=== PATIENT | male | born 1985 | race Caucasian/White ===

== ENCOUNTER 2016-05-08 00:31 | Emergency (ER) | payer SELFPAY ==
[~2016-05-08] VITALS: Ht 182.9 cm; Wt 77.3 kg
[~2016-05-08 00:31] MED LIST: Lorazepam; ONDA4TAB48 PO; Tylenol PO; XVIS2550 PO; [UNRECOGNIZED DRUG - CODE] PO
[2016-05-08 01:06] VITALS: BP 155/105; PULSE 94; RESP 16; O2SAT 96
--- NOTE | 2016-05-08 01:08 | ED.REPORT ---
HPI-Psychiatric Illness Date of Service May 08, 2016 ED Provider: Robert Harris MD Patient is an intoxicated 31 year old male with a history of alcoholism, anxiety , depression with suicidal ideations, and prior psychiatric admissions who presents to the ED [place] [facility] [place] [facility] [place] complaining of increased depression and suicidal ideations tonight. The patient's mother called 911 this evening due to concern for the patient's safety. Patient states that he has been pushing all of his concerns and stressors onto his parents, specifically onto his mother. Patient reports that he is a burned out and that he is experiencing a lot of stress at work. He admitted tonight that he wanted to commit suicide by shooting himself with his gun. He stated that "it was either me or her". The patient has a gun at home, which [facility] confiscated. Patient makes frequent nonsensical statements about his mental status and admits that he is "extremely drunk". Patient states that he was seen by his PCP this week due to increasing anxiety. He was given Clonidine and Lorazepam, which he has "burned through". Patient is also on Propranolol for "extreme heartbeat". Patient admits to drinking a 12pack of beer daily. Patient denies any illicit drug abuse. Nursing Notes Stated Complaint: MENTAL HEALTH EVAL Chief Complaint: Psychiatric Complaint Nursing Notes Reviewed: Yes Allergies: Coded Allergies: diphenhydramine (Verified Allergy, Intermediate, Extrapyramidal Symptoms, 02/20/10) ED VISIT SECONDARY TO ALLERGIC REACTION 02-20-10 Scheduled ([Tylenol]) 500 MG PO QID Take 1 every 6 hours if needed for pain ([Lorazepam]) 1 mg see instructions Lorazepam taper: Take 2 mg every 6 hours for 2 days Then 2 mg every 8 hours for 2 days Then 1 mg every 8 hours for 2 days Then 0.5 mg every 12 hours for 2 day Then stop. Hydroxyzine Faviola-Expunged Drug, Do Not Renew! (Vistaril-Expunged Drug, Do Not Renew!) 25 Mg Tab 25 MG PO Every 6 hours Take 1 every 6 hours if needed for anxiety and/or itching Ondansetron (Zofran) 4 Mg Tab.rapdis 4 MG PO BID Take 1 every 12 hours if needed for nausea Propranolol-Expunged Drug, Do Not Renew! (Propranolol [place]-Expunged Drug, Do Not Renew!) 60 Mg Capcr 120 MG PO AM General Time Seen by MD: 01:07 Chief Complaint Depressed, Suicidal ideation Hx Obtained From: Patient Unable to Obtain Hx: Intoxicated (limited by) Arrived By: Police Onset Occurred: Just prior to arrival Symptom Duration: Since onset Progression Since Onset: Gradually worsening Severity: Current: No pain currently Severity: Maximum: No pain Recent Healthcare: No recent doctor visit, No recent hospitalization Similar Sx Previous: Yes Risk-Psychiatric Illness Suicide Risk Stratification Suicide Risk Factors - Adult: : Access to firearms: Alcohol use: Prior psych admission RF Statements: Risk factors reviewed Past Medical History Past Medical History alcoholism depression and anxiety, with previous psychiatric admissions for suicidal ideations hemorrhoids "extreme heartbeat" gastric ulcer Reports: GERD Past Surgical History none reported Smoking History Current Every Day Smoker Social History Alcohol Use: >5 per day Drug Use: THC Other Social History: Good social support, Local resident Ambulatory Status Independent Review of Systems Unable to Obtain ROS Intoxicated (limited by intoxication) Psychiatric: Reports: Depression, Stress, Suicidal ideation Physical Exam Initial Vital Signs Vital Signs (First) Date Time Temp Pulse Resp B/P Pulse Ox O2 Delivery O2 Flow Rate FiO2 05/08/16 01:06 36.2 94 16 155/105 96 Room Air Initial VS: Reviewed, Vital signs abnormal Neck: Supple, Full range of motion Extremities: Vascular intact, Neuro intact, No swelling Skin: Warm, Dry, No cyanosis General/Constitutional: Awake, Alert, Well developed, Well hydrated Behavior: Positive: Appears intoxicated Appearance / Presentation: Positive: Intoxicated Well kept. Smells of intoxicants. Speaking nonsense. Neurologic: Oriented X3, Speech NL, CN II - XII intact Psychiatric: No hallucinations Abnormal Mood/Affect: Positive: Depressed Abnormal Thinking / Perception: Positive: Suicidal, with plan Agitated. Making threatening nonsensical statements about wanting to end it all. Head / Eyes: Atraumatic, Normocephalic, PERRL ENT: Airway patent, Mucous membranes moist Respiratory / Chest: Breath sounds NL, Breath sounds = bilat, No respiratory distress, No rales, No rhonchi, No wheezing Cardiovascular: Heart rate NL, Regular rhythm, Heart sounds NL, No gallop, No murmurs, No rubs Abdomen: Soft, Non-tender, No guarding, No rebound Interpretation & Diagnostics Interpretation & Diagnostics: Breathalyzer: 0.324 Lab Results Interpretation Result Diagram: 05/08/16 0145 05/08/16 0145 Test 05/08/16 01:20 05/08/16 01:45 Hold Urine Received (Received) White Blood Count 10.8th/mm3 (3.8-10.1) Red Blood Count 4.55mil/mm3 (4.40-5.80) Hemoglobin 15.1g/dL (13.8-17.2) Hematocrit 42.6% (41.0-50.0) Mean Corpuscular Volume 93.6fL (81-100) Mean Corpuscular Hemoglobin 33.2pg (27.0-35.0) Mean Corpuscular Hemoglobin Concent 35.4% (32.0-37.0) Red Cell Distribution Width 12.9% (12.3-15.4) Platelet Count 167bil/L (150-400) Neutrophils (%) (Auto) 64.5% (40-74) Lymphocytes (%) (Auto) 28.0% (14-46) Monocytes (%) (Auto) 6.5% (4-12) Eosinophils (%) (Auto) 0.5% (0-5) Basophils (%) (Auto) 0.2% (0-3) Sodium Level 141mEq/L (134-144) Potassium Level 3.4mEq/L (3.5-5.2) Chloride Level 99mEq/L (97-108) Carbon Dioxide Level 23mmol/L (18-29) Blood Urea Nitrogen 6mg/dL (6-20) Creatinine 0.64mg/dL (0.76-1.27) Estimat Glomerular Filtration Rate 153mL/min (>59) Glucose Level 147mg/dL (60-99) Calcium Level 8.3mg/dL (8.5-10.1) Total Bilirubin 0.2mg/dL (0.0-1.2) Aspartate Amino Transf (AST/SGOT) 43U/L (0-50) Alanine Aminotransferase (ALT/SGPT) 22U/L (0-44) Alkaline Phosphatase 67U/L (25-150) Total Protein 6.6g/dL (6.4-8.4) Albumin 4.4g/dL (3.4-5.0) Thyroid Stimulating Hormone (TSH) 0.862uIU/mL (0.450-4.500) Hold Calderon Top Tube Received (Received) Re-Eval/Medical Decision Med Decision/Clinical Course 31-year-old male who is intoxicated and suicidal. Please see the affidavit. He had a gun at home and was threatening to kill himself. His mother took the gun away from him and called 911 and the police brought him here. He now continues to make suicidal statements and possibly homicidal statements concerning his mother. It is difficult to understand and his intent for sure with some of his statements. He is quite intoxicated. Medical clearance labs were done. We will await sobering. His care is being turned over at change of shift to the oncoming physician. Source of Hx: Old records Re-Evaluation/Progress : Time of Eval: 03:27 Re-Evaluation/Progress Note: Patient is sleeping in bed comfortably. 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 Kirk Care Transferred at: 06:00 [place] Attestation Portions of this note were transcribed by Coreen Dickerson. I, Dr. Harris personally performed the history, physical exam and medical decision-making; I reviewed and confirmed the accuracy of the information in the transcribed note. Signed by: Kamla Rico, 05/08/2016 0529 copies to: Bharath Griffith MD, Robert Soriano MD May 08, 2016 01:08 Coreen Dickerson May 08, 2016 01:16
[2016-05-08 01:55] LABS: BASOPHILS % (AUTO) 0.2 % (0-3); EOSINOPHILS % (AUTO) 0.5 % (0-5); MONOCYTES % (AUTO) 6.5 % (4-12); Mean Corpuscular Hemoglobin 33.2 pg (27.0-35.0); Mean Corpuscular Volume 93.6 fL (81-100); NEUTROPHILS % (AUTO) 64.5 % (40-74); Platelet Count 167 bil/L (150-400)
[2016-05-08 05:21] VITALS: BP 140/97; PULSE 99; RESP 16; O2SAT 97
[2016-05-08] MEDS ORDERED: LORazepam 1 mg Tablet PO ONE (08:20)
[2016-05-08 12:56] VITALS: BP 133/90; PULSE 85; RESP 20; O2SAT 98
[2016-05-08] MEDS ORDERED: LORazepam 2 mg Tablet PO ONE ×2 (14:45→17:50)
[2016-05-08 17:54] VITALS: BP 129/94; PULSE 93; RESP 18; O2SAT 98
[2016-05-08 19:04] VITALS: BP 129/94; PULSE 93; RESP 18; O2SAT 98
== END 2016-05-08 19:05 | disposition home or self-care (01) ==
LOC: SED 00:31
DX: R45.851 Suicidal ideations (principal); F33.1 Major depressive disorder, recurrent, moderate; F10.220 Alcohol dependence with intoxication, uncomplicated; F41.9 Anxiety disorder, unspecified; K21.9 Gastro-esophageal reflux disease without esophagitis; I10 Essential (primary) hypertension; F17.200 Nicotine dependence, unspecified, uncomplicated; Z88.8 Allergy status to other drugs, medicaments and biological substances